=== PATIENT | male | born 1990 | race Caucasian/White ===

== ENCOUNTER 2017-12-11 15:13 | Emergency (ER) | payer OTHER ==
[~2017-12-11] VITALS: Ht 182.9 cm; Wt 76.0 kg
[~2017-12-11 15:13] MED LIST: MECL-272 PO
[2017-12-11 15:41] VITALS: BP 111/53
--- NOTE | 2017-12-11 15:46 | NUR ---
PT AMBULATES BACK TO THE LOBBY
--- NOTE | 2017-12-11 16:41 | NUR ---
PATIENT AMBULATED TO BED 10.
--- NOTE | 2017-12-11 17:00 | NUR ---
PATIENT PRESENTS TO ED WITH COMPLAINTS OF LOWER BACK PAIN THAT RADIATES TO BILATERAL LEGS. PATIENT STATES PAIN CAME ON SUDDENLY YESTERDAY. DENIES N/V/D; SKIN IS PINK/WARM/DRY; AAOX4 WITH EVEN AND STEADY GAIT; LUNGS CLEAR BL; HR EVEN AND REGULAR; PT DENIES ANY FEVER, CP, SOB, OR COUGH AT THIS TIME; PATIENT STATES PAIN OF 9/10 AT THIS TIME; VSS; PATIENT POSITIONED FOR COMFORT; HOB ELEVATED; BEDRAILS UP X1; BED DOWN. ER MD MADE AWARE OF PT STATUS.
--- NOTE | 2017-12-11 18:00 | NUR ---
Patient appears to be resting comfortably in bed. Vital Signs within normal limits. Respirations even and unlabored.
[2017-12-11] MEDS ORDERED: CYCLOBENZAPRINE 10 MG TAB PO ONE (18:30)
[2017-12-11] MEDS ORDERED: KETOROLAC 30 MG/ML VIAL IM ONE (18:30)
--- NOTE | 2017-12-11 19:06 | NUR ---
Pt report given to JHOANA MILLAN. Transfer of care at this time.
[2017-12-11 19:32] VITALS: BP 118/72
--- NOTE | 2017-12-11 19:32 | NUR ---
Patient discharged with v/s stable. Written and verbal after care instructions given and explained. Patient alert, oriented and verbalized understanding of instructions. Ambulatory with steady gait. All questions addressed prior to discharge. ID band removed. Patient advised to follow up with PMD. Rx of FLEXERIL AND IBUPROFEN given. Patient educated on indication of medication including possible reaction and side effects. Opportunity to ask questions provided and answered.
== END 2017-12-11 19:32 | disposition home or self-care (01) ==
LOC: MED 15:13
DX: M54.41 Lumbago with sciatica, right side (principal); Z79.899 Other long term (current) drug therapy
CPT/HCPCS: 96372; 99284; J1885